=== PATIENT | male | born 1990 | race Caucasian/White ===

== ENCOUNTER 2016-06-12 11:08 | Emergency (ER) | payer BC ==
[~2016-06-12] VITALS: Ht 193 cm; Wt 104.3 kg
--- NOTE | 2016-06-12 11:30 | ER.PDOC ---
General Chief Complaint: Requesting Medical Care Stated Complaint: BACK PAIN Time seen by MD: 11:30 Source: patient History of Present Illness Initial Comments pt came in with severe back pain. He was seen on 05/27 after he fell of the ladder and lost sensation of his legs and was sent to [place] where MRI showed herniated disc and he is supposed to get surgery done in June Allergies: Coded Allergies: amoxicillin (Verified Allergy, Severe, HIVES, 02/27/16) Home Meds No Active Prescriptions or Reported Meds Past Medical History Surgical History: appendectomy, back, cholecystectomy Review of Systems Constitutional: see HPI Musculoskeletal: see HPI All Other Systems: Reviewed and Negative Physical Exam General Appearance: No Apparent Distress HEENT: PERRL/EOMI Neck: Normal Alignment Cardiovascular/Respiratory: Regular Rate, Rhythm Gastrointestinal: Other (lumbar brace noted ) Extremities: Normal Range of Motion Neuro/Psych: Alert Departure Time of Disposition: 11:37 Disposition: 01 HOME, SELF-CARE Impression: Primary Impression: Low back pain Additional Impression: Herniated lumbar intervertebral disc Condition: Stable Referrals: PCP,UNKNOWN (PCP) PRIMARY CARE PROVIDER Scripts No Active Prescriptions or Reported Meds Problem Qualifiers Primary Impression: Low back pain Chronicity: acute Back pain laterality: bilateral Sciatica presence: unspecified whether sciatica present Qualified Code: M54.5 - Low back pain COLBY MASTERS MD Jun 12, 2016 11:30
[2016-06-12] MEDS ORDERED: TORADOL IM STA (11:38)
[2016-06-12] MEDS ORDERED: NORFLEX IM STA (11:38)
[2016-06-12] MEDS ORDERED: TORADOL ONE ×2 (11:41)
[2016-06-12] MEDS ORDERED: NORFLEX ONE ×2 (11:41)
[2016-06-12 12:02] VITALS: BP 112/68
== END 2016-06-12 11:57 | disposition home or self-care (01) ==
LOC: ER 11:08
DX: M51.26 Other intervertebral disc displacement, lumbar region (principal); Z88.1 Allergy status to other antibiotic agents
CPT/HCPCS: 96372 ×2; 99284; J1885; J2360

== ENCOUNTER 2016-09-09 14:15 | Emergency (ER) | payer BC ==
[~2016-09-09] VITALS: Ht 193 cm; Wt 106.6 kg
--- NOTE | 2016-09-09 14:19 | NUR ---
ARRIVAL PT ARRIVED AMBULATORY WITH WALKER TO ER 8. PT STATES BROKE HIS BACK IN MAY OF 2016. PT STATES WAS RECENTLY HOSPITALIZED IN [place] AND SENT HOME WITH 4MG DILAUDID TABLETS. PT STATES HE TOOK DILAUDID LAST NIGHT AROUND 1700 AND WOKE UP TODAY AROUND 1400. PT STATES "THEY'RE JUST TOO STRONG, I'M STAYING HOME BY MYSELF AND I CAN'T TAKE THOSE ANYMORE". NO ACUTE DISTRESS NOTED. EDP NOTIFIED OF PT ARRIVAL.
--- NOTE | 2016-09-09 14:40 | ER.PDOC ---
General Chief Complaint: General Complaint Stated Complaint: REACTION TO MEDS, sleepiness after po dilaudid TRAVEL OUT OF US: No Time seen by MD: 14:44 Source: patient Exam Limitations: no limitations History of Present Illness Timing/Duration: 24 hours Severity: mild Allergies: Coded Allergies: amoxicillin (Verified Allergy, Severe, HIVES, 02/27/16) Home Meds No Active Prescriptions or Reported Meds Past Medical History Medical History: no pertinent history Surgical History: appendectomy, cholecystectomy Social History Smoking: less than 1 pack/day Alcohol Use: none Drug Use: none Review of Systems Musculoskeletal: back pain Psychiatric/Neurological: numbness, other (L FOOT DROP) All Other Systems: Reviewed and Negative Physical Exam General Appearance: No Apparent Distress EENT: eyes nml inspection Neck: Non-Tender Respiratory: chest non-tender Gastrointestinal: Normal Bowel Sounds Neurologic/Psychiatric: Abnormal Gait, Other (FOOT DROP) Departure Time of Disposition: 15:00 Disposition: 01 HOME, SELF-CARE Impression: Primary Impression: Herniated lumbar intervertebral disc Additional Impression: Medication side effect Referrals: PCP,UNKNOWN (PCP) PRIMARY CARE PROVIDER Additional Instructions: IN THE ED: EXAM BY DOCTOR AT HOME: TAKE MEDICATIONS DIRECTED FOLLOW UP WITH A PRIMARY CARE PROVIDER RX: TRAMADOL 50MG: TAKE 1-2 TABLETS BY MOUTH EVERY 6 HOURS NEEDED FOR PAIN (#30) DICLOFENAC 75MG: TAKE ONE TABLET BY MOUTH TWICE DAILY (#20) Scripts No Active Prescriptions or Reported Meds KATHY LUNA MD Sep 09, 2016 14:40
[2016-09-09 14:44] VITALS: BP 125/72
== END 2016-09-09 14:39 | disposition home or self-care (01) ==
LOC: ER 14:15
DX: M51.26 Other intervertebral disc displacement, lumbar region (principal); T40.2X5A Adverse effect of other opioids, initial encounter; R20.0 Anesthesia of skin; M21.372 Foot drop, left foot; Y92.89 Other specified places as the place of occurrence of the external cause; Z88.1 Allergy status to other antibiotic agents; Z90.49 Acquired absence of other specified parts of digestive tract
CPT/HCPCS: 99283

== ENCOUNTER 2016-09-12 23:04 | Emergency (ER) | payer BC ==
[~2016-09-12] VITALS: Ht 193 cm; Wt 104.3 kg
[2016-09-12] MEDS ORDERED: NS 1000ML 1,000 ML STA (23:14)
--- NOTE | 2016-09-12 23:16 | NUR ---
STATUS PT'S AT BEDSIDE, PT ORIENTED TO SPOUSE.
[2016-09-12] MEDS ORDERED: ACET-687 PO (23:18)
[2016-09-12] MEDS ORDERED: TRAM50TA PO (23:18)
--- NOTE | 2016-09-12 23:19 | NUR ---
LAB WITH PT
[2016-09-12] MEDS ORDERED: NS 1000ML 1,000 ML ONE (23:24)
[2016-09-12 23:25] LABS: BASOPHIL # 0.1 10^3/uL (0.0-0.1); EOSINOPHIL # 0.3 10^3/uL (0.0-0.2); EOSINOPHIL % 3.9 % (0.0-5.0); HEMATOCRIT 41.4 % (37.0-53.0); HEMOGLOBIN 14.6 g/dL (13.9-16.3); LYMPHOCYTES # 3.3 10^3/uL (1.0-4.8); LYMPHOCYTES % 47.5 % (24.0-44.0); MEAN CELL HGB 28.3 pg (26-34); MEAN CELL HGB CONCENTRATION 35.3 g/dL (33-37); MEAN CORP VOLUME 80.2 fL (78-100); MEAN PLATELET VOLUME 9.8 fL (7.8-11.0); MONOCYTES # 0.5 10^3/uL (0.3-0.8); MONOCYTES % 7.3 % (5.0-12.0); NEUTROPHIL # 2.7 10^3/uL (1.8-7.7); NEUTROPHILS % 39.4 % (41.0-85.0); RED CELL DISTRIBUTION WIDTH 13.5 % (11.5-14.5); WHITE BLOOD CELL 6.9 10^3/uL (4.5-11.0)
[2016-09-12] MEDS ORDERED: TORADOL ONE (23:28)
[2016-09-12] MEDS ORDERED: TORADOL IV STA (23:32)
--- NOTE | 2016-09-12 23:32 | ER.PDOC ---
General Chief Complaint: Seizure Stated Complaint: SEIZURE Time seen by MD: 23:20 Source: patient Exam Limitations: clinical condition History of Present Illness Initial Comments Pt with no prior history of seizures, started on tramadol yesterday along with T #4, for back pain, today he was in the kitchen and fell with seizures, which were witnessed by who saw him with generalized clonic tonic seizures for what she estimates 10-15 minutes, foaming, then after confused and somnolent Timing/Onset/Duration: Unknown Duration, Single Episode Preceding Symptoms/Context: none Character Of Seizures: lost consciousness, unresponsive, completely Motor Activity: shaking all over Post-ictal Symptoms: confusion Injury: bite tongue Allergies: Coded Allergies: amoxicillin (Verified Allergy, Severe, HIVES, 09/12/16) Home Meds Reported Medications Acetaminophen With Codeine (TYLENOL WITH CODEINE #4 TABLET) 1 Each Tablet, 2 EACH PO Q4HR Y for PAIN, TABLET 09/12/16 Tramadol Hcl (TRAMADOL HCL) 50 Mg Tablet, 100 MG PO Q6 Y for PAIN, TABLET 09/12/16 Past Medical History Surgical History: appendectomy, cholecystectomy Social History Smoking: cigarettes, less than 1 pack/day Alcohol Use: occassionally Drug Use: marijuana Constitutional: see HPI EENTM: see HPI Respiratory: see HPI Cardiovascular: see HPI Gastrointestinal: see HPI Genitourinary: see HPI Musculoskeletal: see HPI Skin: see HPI Psychiatric/Neurological: see HPI Endocrine: see HPI Hematologic/Lymphatic: see HPI Physical Exam General Appearance: lethargic EENT: nml eye inspection, PERRL, no nystagmus, nml ENT inspection, no apparent , pharynx nml, no CSF leak Neck/Back: neck supple, non-tender Respiratory: no resp distress, breath sounds nml, no evidence of rib injury CVS: reg rate & rhythm, heart sounds nml Abdomen: non-tender, no organomegaly, no distention Skin: color nml, no rash, warm/dry Extremities: non-tender, nml ROM, no pedal edema Neuro/Psych: oriented x 3, speech nml, mood/affect nml Cerebellar: nml tested, nml Romberg Sensorimotor: no motor deficit, no sensory deficit, reflexes nml Results/Orders Results/Orders Administered Medications Medications (Trade) Dose Ordered Sig/Anjana Route PRN Reason Start Time Stop Time Status Last Admin Dose Admin Sodium Chloride 1,000 ml @ 1,000 mls/hr Q1H STAT IV 09/12/16 23:14 09/13/16 00:13 09/12/16 23:27 Departure Time of Disposition: 00:47 Disposition: 01 HOME, SELF-CARE Impression: Primary Impression: Convulsions Condition: Stable Patient Instructions: Seizure, Adult Referrals: PCP,UNKNOWN (PCP) PRIMARY CARE PROVIDER ASHLEE CONWAY MD Sep 12, 2016 23:32
[2016-09-12 23:58] LABS: ALANINE AMINOTRANSFERASE 40 U/L (12-78); ALKALINE PHOSPHATASE 94 U/L (50-136); ASPARTATE AMINO TRANSFERASE 13 U/L (0-35); CALCIUM 8.8 mg/dL (8.4-10.5); CARBON DIOXIDE 27.3 mmol/L (20.0-32); GLUCOSE 107 mg/dL (70-110)
--- NOTE | 2016-09-12 23:58 | DIREP ---
PROCEDURE:CHEST 1 VIEW COMPARISON:CR, CHEST 1 VIEW, 08/08/2013, 04:25 PM. INDICATIONS:Seizure FINDINGS: LUNGS/PLEURA:No significant pulmonary parenchymal abnormalities. No effusions. VASCULATURE:Normal. Unremarkable pulmonary vasculature. CARDIAC:Normal. No cardiac silhouette abnormality or cardiomegaly. MEDIASTINUM:Normal. No visible mass or adenopathy. BONES:Normal. No fracture or visible bony lesion. OTHER:Negative. CONCLUSION:Normal examination. Dictated by: Pranay Fields M.D. on 09/12/2016 at 11:57 PM
--- NOTE | 2016-09-13 00:07 | DIREP ---
PROCEDURE:CT HEAD OR BRAIN W/O CONTRAST COMPARISON:None. INDICATIONS:Seizure TECHNIQUE:CT images were created without intravenous contrast. FINDINGS: VENTRICLES:The ventricles are normal in size and configuration. CEREBRUM:Normal cerebral morphology with appropriate valdes white matter differentiation. CEREBELLUM:Negative. BRAINSTEM:Negative. BASAL CISTERNS:Negative. HEMORRHAGE:No MASS LESION:No ACUTE INFARCT:No SKULL:Normal. SINUSES:Normal. OTHER:None CONCLUSION:Normal examination. Dictated by: Pranay Fields M.D. on 09/13/2016 at 00:02 AM
--- NOTE | 2016-09-13 01:04 | NUR ---
DISCHARGE DISCHARGE INSTRUCTIONS AND PRESCRIPTION MEDICATION DISCUSSED. PT AND SPOUSE VERBALIZED UNDERSTANDING. ENCOURAGED TO RETURN FOR ANY CONCERNS.
[2016-09-13 01:09] VITALS: BP 132/68
== END 2016-09-13 01:04 | disposition home or self-care (01) ==
LOC: ER 23:04 → EDBD 23:04 → ER 09-13 01:04
DX: R56.9 Unspecified convulsions (principal); F12.10 Cannabis abuse, uncomplicated; F17.210 Nicotine dependence, cigarettes, uncomplicated; Z88.1 Allergy status to other antibiotic agents; Z79.899 Other long term (current) drug therapy; Z90.49 Acquired absence of other specified parts of digestive tract; R79.1 Abnormal coagulation profile
CPT/HCPCS: 70450; 71010; 80053; 82550; 82553; 84484; 85025; 85610; 85730; 93005; 96361; 96374; 99285; J1885; J7030